=== PATIENT | male | born 1985 | race Caucasian/White ===

== ENCOUNTER 2020-11-21 12:44 | Emergency (ER) | payer SELFPAY | END 2020-11-21 14:27 | disposition other institution (70) | LOC: FER 12:44 | DX: S62.630B Displaced fracture of distal phalanx of right index finger, initial encounter for open fracture (principal); Z23 Encounter for immunization; W31.89XA Contact with other specified machinery, initial encounter; Y92.89 Other specified places as the place of occurrence of the external cause; Y99.0 Civilian activity done for income or pay | CPT/HCPCS: 73130; 90715 ==